=== PATIENT | female | born 1995 | race Caucasian/White ===

== ENCOUNTER 2019-02-07 18:32 | Emergency (ER) | payer OTHER ==
[2019-02-07 18:52] VITALS: BP 117/72; PULSE 80; TEMP 98.5; BMI 24.7
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
== END 2019-02-07 21:30 | disposition home or self-care (01) ==
LOC: JERFT 18:32
DX: S20.212A Contusion of left front wall of thorax, initial encounter (principal); V43.52XA Car driver injured in collision with other type car in traffic accident, initial encounter; Y92.414 Local residential or business street as the place of occurrence of the external cause; Y93.89 Activity, other specified; Y99.8 Other external cause status
CPT/HCPCS: 71045-TC-FY; 71101-TC-LT-FY; 99281-25